=== PATIENT | female | born 1965 | race Caucasian/White ===

== ENCOUNTER → 2016-04-12 | Outpatient (CLI) | payer BC ==
--- NOTE | 2016-04-15 09:09 | MM ---
Reason for exam: screening (asymptomatic). Last mammogram was performed 1 year ago. History: Patient history of other cancer. Family history of breast cancer in 2 maternal cousins. Physical Findings: A clinical breast exam by your physician is recommended on an annual basis and results should be correlated with mammographic findings. MG 3D Screening Mammo W/Cad Bilateral CC and MLO view(s) were taken. Prior study comparison: April 05, 2015, bilateral MG screening mammo w CAD. November 08, 2014, left breast MG diagnostic mammo LT w CAD. The breast tissue is heterogeneously dense. This may lower the sensitivity of mammography. Nodular density in the right retroarolar region. This finding is changed when compared with previous exams. ASSESSMENT: Incomplete: need additional imaging evaluation, BI-RAD 0 RECOMMENDATION: Special view mammogram of the right breast. If lesion persists on supplemental views, image directed ultrasound is recommended. [facility] will attempt to contact patient to return for supplemental views and ultrasound if indicated.
== END | disposition home or self-care (01) ==
LOC: RADMAMWWP 09:38
PROVIDERS: ATTEND Obstetrics & Gynecology
DX: Z12.31 Encounter for screening mammogram for malignant neoplasm of breast (principal); R92.2 Inconclusive mammogram
CPT/HCPCS: 77052; 77063; G0202

== ENCOUNTER → 2016-04-19 | Outpatient (CLI) | payer BC ==
--- NOTE | 2016-04-19 14:18 | MM ---
Reason for exam: additional evaluation requested from abnormal screening. Last mammogram was performed less than 1 month ago. History: Patient history of other cancer. Family history of breast cancer in 2 maternal cousins. Physical Findings: Nurse did not find any significant physical abnormalities on exam. MG 3D Work Up W/Cad RT ML, spot compression CC, and spot compression MLO view(s) were taken of the right breast. Prior study comparison: April 12, 2016, bilateral MG 3d screening mammo w/cad. April 05, 2015, bilateral MG screening mammo w CAD. There is no discrete abnormality including area of concern. These results were verbally communicated with the patient and result sheet given to the patient on 04/19/16. ASSESSMENT: Benign, BI-RAD 2 RECOMMENDATION: Return to routine screening mammogram schedule for both breasts.
== END | disposition home or self-care (01) ==
LOC: RADMAMWWP 13:35
PROVIDERS: ATTEND Obstetrics & Gynecology
DX: R92.8 Other abnormal and inconclusive findings on diagnostic imaging of breast (principal)
CPT/HCPCS: G0206; G0279

== ENCOUNTER → 2017-05-16 | Outpatient (CLI) | payer BC ==
--- NOTE | 2017-05-20 09:02 | MM ---
Reason for exam: screening (asymptomatic). Last mammogram was performed 1 year and 1 month ago. History: Patient is postmenopausal and history of other cancer. Family history of breast cancer in 2 maternal cousins. Physical Findings: A clinical breast exam by your physician is recommended on an annual basis and results should be correlated with mammographic findings. MG 3D Screening Mammo W/Cad Bilateral CC and MLO view(s) were taken. Prior study comparison: April 19, 2016, right breast MG 3d work up w/cad RT. April 12, 2016, bilateral MG 3d screening mammo w/cad. The breast tissue is heterogeneously dense. This may lower the sensitivity of mammography. No significant changes when compared with prior studies. ASSESSMENT: Negative, BI-RAD 1 RECOMMENDATION: Routine screening mammogram of both breasts in 1 year.
== END | disposition home or self-care (01) ==
LOC: RADMAMWWP 09:59
PROVIDERS: ATTEND Obstetrics & Gynecology
DX: Z12.31 Encounter for screening mammogram for malignant neoplasm of breast (principal)
CPT/HCPCS: 77063; 77067

== ENCOUNTER → 2017-05-23 | Outpatient (CLI) | payer BC ==
--- NOTE | 2017-05-23 18:01 | BD ---
EXAMINATION TYPE: MG DEXA axial skeleton. DATE OF EXAM: 05/23/2017 COMPARISON: NONE CLINICAL HISTORY: 52 YR OLD FEMALE....ICD-10 CODE: N95.1 POST MENOPAUSAL SYMPTOMS Height: 63.5 Weight: 146 FRAX RISK QUESTIONS: Alcohol (3 or more units per day): NO Family History (Parent hip fracture): YES Glucocorticoids (More than 3mos): NO (Ex: prednisone, prednisolone, methylprednisolone, dexamethasone, and hydrocortisone). History of Fracture in Adulthood: NO Secondary Osteoporosis: NO 1. Type 1 Diabetes: NO 2. Hyperthyroidism: NO 3. Menopause before 45: NO 4. Malnutrition: NO 5. Chronic liver disease: NO Rheumatoid Arthritis: NO Current Tobacco Use: NO RISK FACTORS HISTORY OF: Family History of Osteoporosis: YES, HER MOTHER WITH BROKEN HIP Active: YES Diet low in dairy products/other sources of calcium: NO Postmenopausal woman: AT AGE 50 YRS OLD Hyperparathyroidism: NO Adrenal Insufficiency: NO MEDICATIONS: Additional Medications: ZOLOFT, Additional History: NONE TO NOTE EXAM MEASUREMENTS: Bone mineral densitometry was performed using the [employer] System. Bone mineral density as measured about the Lumbar spine is: ----- L1-L4(G/cm2): 1.034 T Score Values are as follows: ----- L1: -0.6 ----- L2: -1.3 ----- L3: -1.7 ----- L4: -1.4 ----- L1-L4: -1.2 Bone mineral density FIRST BONE DENSITY TEST.........BASELINE STUDY Bone mineral density about the R hip (g/cm2): 0.787 Bone mineral density about the L hip (g/cm2): 0.755 T Score values are as follows: -----R Neck: -1.8 -----L Neck: -1.9 -----R Total: -1.8 -----L Total: -2.0 Bone mineral density BASELINE STUDY FRAX%S: THERE IS A 12.5% CHANCE OF A MAJOR OSTEOPOROTIC FX AND A 0.8% OF HIP FX....PROBABILITY OF FX IN 10 YRS TIME IMPRESSION: Osteopenia (T Score between -2.5 and -1). There is slightly increased risk of fracture and the patient may be considered for treatment. Re-Screen 2-5 years. NOTE: T-SCORE=SD OF THE YOUNG ADULT MEAN.
== END | disposition home or self-care (01) ==
LOC: RADBDWWP 10:10
PROVIDERS: ATTEND Obstetrics & Gynecology
DX: M85.80 Other specified disorders of bone density and structure, unspecified site (principal)
CPT/HCPCS: 77080

== ENCOUNTER → 2018-05-22 | Outpatient (CLI) | payer BC ==
--- NOTE | 2018-05-26 08:45 | MM ---
Reason for exam: screening (asymptomatic). Last mammogram was performed 1 year ago. History: Patient is postmenopausal and history of other cancer. Family history of breast cancer in 2 maternal cousins. Physical Findings: A clinical breast exam by your physician is recommended on an annual basis and results should be correlated with mammographic findings. MG 3D Screening Mammo W/Cad Bilateral CC and MLO view(s) were taken. Prior study comparison: May 16, 2017, bilateral MG 3d screening mammo w/cad. April 19, 2016, right breast MG 3d work up w/cad RT. The breast tissue is heterogeneously dense. This may lower the sensitivity of mammography. No significant changes when compared with prior studies. ASSESSMENT: Benign, BI-RAD 2 RECOMMENDATION: Routine screening mammogram of both breasts in 1 year.
== END | disposition home or self-care (01) ==
LOC: RADMAMWWP 07:16
PROVIDERS: ATTEND Obstetrics & Gynecology
DX: Z12.31 Encounter for screening mammogram for malignant neoplasm of breast (principal)
CPT/HCPCS: 77063; 77067

== ENCOUNTER → 2019-05-25 | Outpatient (CLI) | payer BC ==
--- NOTE | 2019-05-25 16:24 | BD ---
EXAMINATION TYPE: Axial Bone Density DATE OF EXAM: 05/25/2019 COMPARISON: 05.23.2017 CLINICAL HISTORY: 54 YR OLD FEMALE....ICD-10 CODE: M89.9 DISORDER OF BONE Height: 63.8 Weight: 150 FRAX RISK QUESTIONS: Family History (Parent hip fracture): YES, WITH SPINAL FXS RISK FACTORS HISTORY OF: Family History of Osteoporosis: YES, HER MOTHER, WITH BACK FXS Postmenopausal woman: YES, AT AGE 51....NO HORMONES Hyperparathyroidism: NO Adrenal Insufficiency: NO MEDICATIONS: Additional Medications: ZOLOFT, Additional History: NOTHING ADDITIONAL TO NOTE EXAM MEASUREMENTS: Bone mineral densitometry was performed using the [employer] System. Bone mineral density as measured about the Lumbar spine is: ----- L1-L4(G/cm2): 1.081 T Score Values are as follows: ----- L1: -0.6 ----- L2: -1.1 ----- L3: -0.6 ----- L4: -1.1 ----- L1-L4: -0.8 Bone mineral density has: Increased 5.9% since study of: 05.23.2017 Bone mineral density about the R hip (g/cm2): 0.778 Bone mineral density about the L hip (g/cm2): 0.760 T Score values are as follows: -----R Neck: -2.0 -----L Neck: -0.9 -----R Total: -1.8 -----L Total: -2.0 Bone mineral density has: Decreased -0.3% since study of: 05.23.2017 FRAX%s: THERE IS A 14.6% CHANCE FOR A MAJOR OSTEOPOROTIC FX AND A 1.0% FOR HIP.....PROBABILITY FOR FX IN 10 YRS TIME IMPRESSION: Osteopenia (T Score between -2.5 and -1). There is slightly increased risk of fracture and the patient may be considered for treatment. Re-Screen 2-5 years. NOTE: T-SCORE=SD OF THE YOUNG ADULT MEAN.
--- NOTE | 2019-05-27 10:15 | MM ---
Reason for exam: screening (asymptomatic). Last mammogram was performed 1 year ago. History: Patient is postmenopausal and history of other cancer. Family history of breast cancer in 2 maternal cousins. Physical Findings: A clinical breast exam by your physician is recommended on an annual basis and results should be correlated with mammographic findings. MG 3D Screening Mammo W/Cad Bilateral CC and MLO view(s) were taken. Prior study comparison: May 22, 2018, bilateral MG 3d screening mammo w/cad. May 16, 2017, bilateral MG 3d screening mammo w/cad. April 12, 2016, bilateral MG 3d screening mammo w/cad. April 05, 2015, bilateral MG screening mammo w CAD. The breast tissue is heterogeneously dense. This may lower the sensitivity of mammography. Asymmetric density superior left MLO view was present previously but is now more defined. ASSESSMENT: Incomplete: need additional imaging evaluation, BI-RAD 0 RECOMMENDATION: Special view mammogram of the left breast. (3D) If lesion persists on supplemental views, image directed ultrasound is recommended. [facility] will attempt to contact patient to return for supplemental views and ultrasound if indicated.
== END | disposition home or self-care (01) ==
LOC: RADMAMWWP 08:50
PROVIDERS: ATTEND Obstetrics & Gynecology
DX: Z12.31 Encounter for screening mammogram for malignant neoplasm of breast (principal); M85.89 Other specified disorders of bone density and structure, multiple sites
CPT/HCPCS: 77063; 77067; 77080

== ENCOUNTER → 2019-05-31 | Outpatient (CLI) | payer BC ==
--- NOTE | 2019-06-01 08:29 | MM ---
Reason for exam: additional evaluation requested from abnormal screening. Last mammogram was performed less than 1 month ago. History: Patient is postmenopausal and history of other cancer. Family history of breast cancer in 2 maternal cousins. Physical Findings: Nurse did not find any significant physical abnormalities on exam. MG 3D Work Up W/Cad LT LM and spot compression MLO view(s) were taken of the left breast. Prior study comparison: May 25, 2019, bilateral MG 3d screening mammo w/cad. May 22, 2018, bilateral MG 3d screening mammo w/cad. The breast tissue is heterogeneously dense. This may lower the sensitivity of mammography. Left superior asymmetry improves on additional views with correlate lateral on screening CC. Precautionary left upper outer quadrant ultrasound will be done. These results were verbally communicated with the patient and result sheet given to the patient on 05/31/19. ASSESSMENT: Incomplete: need additional imaging evaluation, BI-RAD 0 RECOMMENDATION: Ultrasound of the left breast. (upper outer quadrant)
--- NOTE | 2019-06-01 08:31 | USB ---
Reason for exam: additional evaluation requested from abnormal screening. History: Patient is postmenopausal and history of other cancer. Family history of breast cancer in 2 maternal cousins. US Breast Workup Limited LT Left limited breast ultrasound including focal area of concern, retroareolar and axilla demonstrates no cystic or solid lesion seen. No suspicious sonographic finding. These results were verbally communicated with the patient and result sheet given to the patient on 05/31/19. ASSESSMENT: Negative, BI-RAD 1 RECOMMENDATION: Return to routine screening mammogram schedule for both breasts.
== END | disposition home or self-care (01) ==
LOC: RADMAMWWP 13:32
PROVIDERS: ATTEND Obstetrics & Gynecology
DX: R92.8 Other abnormal and inconclusive findings on diagnostic imaging of breast (principal)
CPT/HCPCS: 77061; 77065

== ENCOUNTER → 2020-06-09 | Outpatient (CLI) | payer BC ==
--- NOTE | 2020-06-12 14:49 | MM ---
Reason for exam: screening (asymptomatic). Last mammogram was performed 1 year ago. History: Patient is postmenopausal and history of other cancer. Family history of breast cancer in 2 maternal cousins. Took hormonal contraceptives for 15 years. Physical Findings: A clinical breast exam by your physician is recommended on an annual basis and results should be correlated with mammographic findings. MG 3D Screening Mammo W/Cad Bilateral CC and MLO view(s) were taken. Prior study comparison: May 31, 2019, left breast MG 3d work up w/cad LT. May 25, 2019, bilateral MG 3d screening mammo w/cad. There are scattered fibroglandular densities. There is chronic nodularity in the left posterior and lateral breast on 3D images. No significant changes when compared with prior studies. ASSESSMENT: Benign, BI-RAD 2 RECOMMENDATION: Routine screening mammogram of both breasts in 1 year.
== END ==
LOC: RADMAMWWP 16:37
PROVIDERS: ATTEND Obstetrics & Gynecology
DX: Z12.31 Encounter for screening mammogram for malignant neoplasm of breast (principal); Z80.3 Family history of malignant neoplasm of breast; Z78.0 Asymptomatic menopausal state
CPT/HCPCS: 77063; 77067

== ENCOUNTER → 2021-06-12 | Outpatient (CLI) | payer BC ==
--- NOTE | 2021-06-13 11:06 | MM ---
Reason for exam: screening (asymptomatic). Last mammogram was performed 1 year ago. History: Patient is postmenopausal and has history of other cancer at age 51. Family history of breast cancer in 2 maternal cousins. Took hormonal contraceptives for 15 years. Physical Findings: A clinical breast exam by your physician is recommended on an annual basis and results should be correlated with mammographic findings. MG 3D Screening Mammo W/Cad Bilateral CC and MLO view(s) were taken. Prior study comparison: June 09, 2020, bilateral MG 3d screening mammo w/cad. May 31, 2019, left breast MG 3d work up w/cad LT. The breast tissue is heterogeneously dense. This may lower the sensitivity of mammography. Stable benign calcifications. There is no discrete abnormality. No significant changes when compared with prior studies. ASSESSMENT: Benign, BI-RAD 2 RECOMMENDATION: Routine screening mammogram of both breasts in 1 year.
== END | disposition home or self-care (01) ==
LOC: RADMAMWWP 12:31
PROVIDERS: ATTEND Obstetrics & Gynecology
DX: Z12.31 Encounter for screening mammogram for malignant neoplasm of breast (principal); Z78.0 Asymptomatic menopausal state; Z80.3 Family history of malignant neoplasm of breast
CPT/HCPCS: 77063; 77067

== ENCOUNTER 2022-09-07 14:20 | Emergency (ER) | payer BC ==
[2022-09-07 14:26] VITALS: RESP 18; TEMP 98
[2022-09-07 14:51] LABS: Basophils % (A) 0 %; Eosinophils # (A) 0.1 k/uL (0-0.7); Eosinophils % (A) 1 %; HGB 14.4 gm/dL (11.4-16.0); Lymphocytes # (A) 1.3 k/uL (1.0-4.8); Lymphocytes % (A) 15 %; MCH 31.6 pg (25.0-35.0); MCHC 34.2 g/dL (31.0-37.0); MCV 92.3 fL (80.0-100.0); Mean Platelet Volume 7.9; Monocytes # (A) 0.3 k/uL (0-1.0); Monocytes % (A) 4 %; Neutrophils # (A) 6.6 k/uL (1.3-7.7); Neutrophils % (A) 79 %; Platelet Count 218 k/uL (150-450); RBC 4.55 m/uL (3.80-5.40); RDW 12.7 % (11.5-15.5); WBC 8.4 k/uL (3.8-10.6)
[2022-09-07 14:59] LABS: INR 0.9 (<1.2); Prothrombin Time 10.1 sec (9.0-12.0)
[2022-09-07 15:04] LABS: ALT 17 U/L (4-34); AST 23 U/L (14-36); African American GFR (CKD) >90 (>60 ml/min/1.73 sqM); Albumin 4.4 g/dL (3.5-5.0); Alkaline Phosphatase 84 U/L (38-126); Anion Gap 8 mmol/L; Blood Urea Nitrogen 13 mg/dL (7-17); Carbon Dioxide 27 mmol/L (22-30); Chloride 103 mmol/L (98-107); Glucose 93 mg/dL (74-99); Non-African American GFR(CKD) >90 (>60 ml/min/1.73 sqM); Sodium 138 mmol/L (137-145); Total Bilirubin 1.1 mg/dL (0.2-1.3); Total Protein 7.6 g/dL (6.3-8.2)
--- NOTE | 2022-09-07 15:20 | ED ---
General Adult HPI - General Chief complaint: Chest Pain Stated complaint: HEART BURN Time Seen by Provider: 09/07/22 15:19 Source: patient Mode of arrival: ambulatory Limitations: no limitations - History of Present Illness Initial comments: Patient presents to the ED with her complaining of having "heartburn" constantly since about midnight last night. Patient describes her pain as a pressure/spasm in her mid chest. Patient states that her pain has been slightly worse with PO intake today. Patient admits that she had mild nausea earlier t wai, but she denies vomiting. Patient denies radiation of her pain, trauma or injury, fever or chills, headache, focal numbness/weakness/neuro deficit, neck/arm/jaw/back pain, pleuritic pain, dyspnea, cough or cold symptoms, palpitations, dizziness, diaphoresis, vomiting, abdominal pain, diarrhea or constipation, bloody or melanotic stool, dysuria or urinary symptoms, leg or calf swelling or pain, or any other symptoms or complaints. Patient states that she has taken Pepto-Bismol and Prilosec today without any relief. - Related Data Allergies Allergy/AdvReac Type Severity Reaction Status Date / Time No Known Allergies Allergy Verified 09/07/22 14:26 Review of Systems ROS Statement: Those systems with pertinent positive or pertinent negative responses have been documented in the HPI. ROS Other: All systems not noted in ROS Statement are negative. Past Medical History Past Medical History: No Reported History History of Any Multi-Drug Resistant Organisms: None Reported Past Surgical History: Hernia Repair Past Psychological History: No Psychological Hx Reported Smoking Status: Never smoker Past Alcohol Use History: Occasional Past Drug Use History: None Reported General Exam Limitations: no limitations General appearance: alert, in no apparent distress Head exam: Present: normocephalic Eye exam: Present: normal appearance ENT exam: Present: mucous membranes moist Neck exam: Present: other (Trachea is in midline) Respiratory exam: Present: normal lung sounds bilaterally. Absent: respiratory distress, wheezes, rales, rhonchi, stridor, chest wall tenderness Cardiovascular Exam: Present: regular rate, normal rhythm, normal heart sounds, other (Normal radial pulses bilaterally) GI/Abdominal exam: Present: soft. Absent: distended, tenderness, guarding Extremities exam: Present: other (Negative Homans sign bilaterally). Absent: tenderness, pedal edema, calf tenderness Neurological exam: Present: alert, oriented X3 Psychiatric exam: Present: normal affect, normal mood Skin exam: Present: warm, dry, intact, normal color Course Vital Signs 09/07/22 14:24 Temperature 98 F Pulse Rate 81 Respiratory 18 Rate Blood Pressure 167/106 O2 Sat by Pulse 99 Oximetry - Reevaluation(s) Reevaluation #1: 09/07/22 17:03 Patient reports that her chest discomfort has improved with the GI cocktail that she was given in the ED, and she denies development of any new symptoms while in the ED. Patient remains alert and breathing comfortably with a normal room air oxygen saturation. Patient and are aware of the patient's test results, and patient feels comfortable being discharged home at this time. She was counseled about chest pain/GERD, and she was clearly explained return and follow-up instructions. She feels comfortable with this plan. EKG Findings - EKG Comments: EKG Findings:: ED physician interpretation (interpreted by me): Normal sinus rh ythm, ventricular rate of 81 bpm, no ectopy, normal [place] and QRS intervals, normal QT interval, normal axis, no ST or T-wave abnormality Medical Decision Making - Medical Decision Making Was pt. sent in by a medical professional or institution (, PA, INTERNAL MEDICINE DOCTOR, urgent care, hospital, or correction...) When possible be specific @ -No Did you speak to anyone other than the patient for history (EMS, parent, family, police, friend...)? What history was obtained from this source @ -No Did you review nursing and triage notes (agree or disagree)? Why? @ -I reviewed and agree with nursing and triage notes Were old charts reviewed (outside hosp., previous admission, EMS record, old EKG, old radiological studies, urgent care reports/EKG's, correction records)? Report findings @ -No old charts were reviewed Differential Diagnosis (chest pain, altered mental status, abdominal pain women, abdominal pain men, vaginal bleeding, weakness, fever, dyspnea, syncope, headache, dizziness, GI bleed, back pain, seizure, CVA, palpatations, mental health, musculoskeletal)? @ -Differential Chest Pain: Stable Angina, Unstable Angina, STEMI, NSTEMI, Pneumothorax, Musculoskeletal, Esophageal Spasm, GERD, anxiety, esophagitis, this is not meant to be an all-inclusive list. EKG interpreted by me (3pts min.). @ -As above X-rays interpreted by me (1pt min.). @ -Chest x-ray was reviewed myself and shows no acute abnormality. I agree with the radiologist's interpretation as above. CT interpreted by me (1pt min.). @ -None done U/S interpreted by me (1pt. min.). @ -None done What testing was considered but not performed or refused? (CT, X-rays, U/S, labs)? Why? @ -None What meds were considered but not given or refused? Why? @ -None Did you discuss the management of the patient with other professionals (professionals i.e. Dr., PA, INTERNAL MEDICINE DOCTOR, lab, RT, psych nurse, professor of social work, assembler ping pong table, teacher, founder chairman and chief creative officer, community case manager)? Give summary @ -No Was smoking cessation discussed for >3mins.? @ -No Was critical care preformed (if so, how long)? @ -No Were there social determinants of health that impacted care today? How? (Homelessness, low income, unemployed, alcoholism, drug addiction, transportation, low edu. Level, literacy, decrease access to med. care, skilled nursing, rehab)? @ -No Was there de-escalation of care discussed even if they declined (Discuss DNR or withdrawal of care, Hospice)? DNR status @ -No What co-morbidities impacted this encounter? (DM, HTN, Smoking, COPD, CAD, Cancer, CVA, ARF, Chemo, Hep., AIDS, mental health diagnosis, sleep apnea, morbid obesity)? @ -None Was patient admitted / discharged? Hospital course, mention meds given and route, prescriptions, significant lab abnormalities, going to OR and other pertinent info. @ -Patient's ED workup, including EKG chest x-ray and labs are unremarkable. Patient reports having constant symptoms since midnight last night, and her troponin is within normal limits. Patient reports that her chest discomfort has improved with the GI cocktail that she was given in the ED, and she also reports that her chest discomfort was worse with oral intake today. I suspect that her chest pain may be esophageal in etiology. Patient has no identifiable CAD risk factors. I do not suspect an emergent medical condition at this time. Will discharge patient home with her at this time. Patient feels comfortable with this plan. Undiagnosed new problem with uncertain prognosis? @ -No Drug Therapy requiring intensive monitoring for toxicity (Heparin, Nitro, Insulin, Cardizem)? @ -No Were any procedures done? @ -No Diagnosis/symptom? @ -Chest pain Acute, or Chronic, or Acute on Chronic? @ -Acute Uncomplicated (without systemic symptoms) or Complicated (systemic symptoms)? @ -default Side effects of treatment? @ -No Exacerbation, Progression, or Severe Exacerbation? @ -No Poses a threat to life or bodily function? How? (Chest pain, [place], [place], pneumonia, PE, COPD, DKA, ARF, appy, cholecystitis, CVA, Diverticulitis, Homicidal, Suicidal, threat to staff... and all critical care pts) @ -No - Lab Data Result diagrams: 09/07/22 14:37 09/07/22 14:37 Lab Results 09/07/22 09/07/22 09/07/22 Range/Units 14:37 14:37 14:37 WBC 8.4 (3.8-10.6) k/uL RBC 4.55 (3.80-5.40) m/uL Hgb 14.4 (11.4-16.0) gm/dL Hct 42.0 (34.0-46.0) % MCV 92.3 (80.0-100.0) fL MCH 31.6 (25.0-35.0) pg MCHC 34.2 (31.0-37.0) g/dL RDW 12.7 (11.5-15.5) % Plt Count 218 (150-450) k/uL MPV 7.9 Neutrophils % 79 % Lymphocytes % 15 % Monocytes % 4 % Eosinophils % 1 % Basophils % 0 % Neutrophils # 6.6 (1.3-7.7) k/uL Lymphocytes # 1.3 (1.0-4.8) k/uL Monocytes # 0.3 (0-1.0) k/uL Eosinophils # 0.1 (0-0.7) k/uL Basophils # 0.0 (0-0.2) k/uL PT 10.1 (9.0-12.0) sec INR 0.9 (<1.2) APTT 23.0 (22.0-30.0) sec Sodium 138 (137-145) mmol/L Potassium 4.0 (3.5-5.1) mmol/L Chloride 103 (98-107) mmol/L Carbon Dioxide 27 (22-30) mmol/L Anion Gap 8 mmol/L BUN 13 (7-17) mg/dL Creatinine 0.67 (0.52-1.04) mg/dL Est GFR (CKD-EPI)AfAm >90 (>60 ml/min/1.73 sqM) Est GFR (CKD-EPI)NonAf >90 (>60 ml/min/1.73 sqM) Glucose 93 (74-99) mg/dL Calcium 10.0 (8.4-10.2) mg/dL Magnesium 2.0 (1.6-2.3) mg/dL Total Bilirubin 1.1 (0.2-1.3) mg/dL AST 23 (14-36) U/L ALT 17 (4-34) U/L Alkaline Phosphatase 84 (38-126) U/L Troponin I (0.000-0.034) ng/mL Total Protein 7.6 (6.3-8.2) g/dL Albumin 4.4 (3.5-5.0) g/dL 09/07/22 Range/Units 14:37 WBC (3.8-10.6) k/uL RBC (3.80-5.40) m/uL Hgb (11.4-16.0) gm/dL Hct (34.0-46.0) % MCV (80.0-100.0) fL MCH (25.0-35.0) pg MCHC (31.0-37.0) g/dL RDW (11.5-15.5) % Plt Count (150-450) k/uL MPV Neutrophils % % Lymphocytes % % Monocytes % % Eosinophils % % Basophils % % Neutrophils # (1.3-7.7) k/uL Lymphocytes # (1.0-4.8) k/uL Monocytes # (0-1.0) k/uL Eosinophils # (0-0.7) k/uL Basophils # (0-0.2) k/uL PT (9.0-12.0) sec INR (<1.2) APTT (22.0-30.0) sec Sodium (137-145) mmol/L Potassium (3.5-5.1) mmol/L Chloride (98-107) mmol/L Carbon Dioxide (22-30) mmol/L Anion Gap mmol/L BUN (7-17) mg/dL Creatinine (0.52-1.04) mg/dL Est GFR (CKD-EPI)AfAm (>60 ml/min/1.73 sqM) Est GFR (CKD-EPI)NonAf (>60 ml/min/1.73 sqM) Glucose (74-99) mg/dL Calcium (8.4-10.2) mg/dL Magnesium (1.6-2.3) mg/dL Total Bilirubin (0.2-1.3) mg/dL AST (14-36) U/L ALT (4-34) U/L Alkaline Phosphatase (38-126) U/L Troponin I <0.012 (0.000-0.034) ng/mL Total Protein (6.3-8.2) g/dL Albumin (3.5-5.0) g/dL - Radiology Data Chest x-ray: No evidence for acute pulmonary disease. Disposition Clinical Impression: Chest pain Disposition: HOME SELF-CARE Condition: Stable Instructions (If sedation given, give patient instructions): Chest Pain (ED), GERD (Gastroesophageal Reflux Disease) (ED) Additional Instructions: Return to the ER immediately should you develop new or worsening pain, shortness of breath, a fever, vomiting, feeling dizzy or faint, or new or worsening symptoms. Follow up closely with your primary care provider. Is patient prescribed a controlled substance at d/c from ED?: No Referrals: Carol Shin MD [Primary Care Provider] - 1-2 days Time of Disposition: 17:08
[2022-09-07] MEDS ORDERED: MAG HYDROX/AL HYDROX/SIMETH 30 ML, HYOSCYAMINE ELIXIR 10 ML, LIDOCAINE 2% GLYDO JELLY 1... PO STA ×3 (15:27)
--- NOTE | 2022-09-07 15:31 | XR ---
EXAMINATION TYPE: XR chest 2V DATE OF EXAM: 09/07/2022 COMPARISON: NONE HISTORY: Shortness of breath TECHNIQUE: Frontal and lateral views of the chest are obtained. FINDINGS: Scattered senescent parenchymal changes noted. Hyperinflation compatible with COPD. No evidence for infiltrate. No evidence for atelectasis. Heart size is stable. Mediastinal structures are stable and grossly unremarkable. No evidence for hilar prominence. Degenerative changes dorsal spine. IMPRESSION: 1. No evidence for acute pulmonary disease.
[2022-09-07 17:16] VITALS: BP 149/89; PULSE 69
== END 2022-09-07 17:18 | disposition home or self-care (01) ==
LOC: EC 14:20
DX: R07.89 Other chest pain (principal)
CPT/HCPCS: 36415; 71046; 80053; 83735; 84484; 85025; 85610; 85730; 93005; 99285

== ENCOUNTER → 2023-06-17 | Outpatient (CLI) | payer BC ==
--- NOTE | 2023-06-18 18:31 | MM ---
Reason for Exam: Screening (asymptomatic). Last screening mammogram was performed 12 month(s) ago. Patient History: Menarche at age 12. First Full-Term at age 27. Postmenopausal. Other cancer, age 51. Patient used Hormonal Contraceptives for 15 years. Maternal cousin had breast cancer. Maternal cousin had breast cancer. Risk Values: La 5 year model risk: 1.5%. NCI Lifetime model risk: 8.5%. Prior Study Comparison: 06/09/2020 Bilateral Screening Mammogram, [facility]. 06/12/2021 Bilateral Screening Mammogram, [facility]. 06/13/2022 Bilateral MG 3D screening mammo w/cad, [facility]. Tissue Density: The breasts are heterogeneously dense, which may obscure small masses. Findings: Analyzed By CAD. Superior asymmetric density left breast is unchanged. There is no suspicious group of microcalcifications or new suspicious mass in either breast. Overall Assessment: Benign, BI-RAD 2 Management: Screening Mammogram of both breasts in 1 year. . Patient should continue monthly self-breast exams. A clinical breast exam by your physician is recommended on an annual basis. This exam should not preclude additional follow-up of suspicious palpable abnormalities. Note on La scores and lifetime risk: 1. A La score greater than 3% is considered moderate risk. If this is the case, consider specialist referral to assess eligibility for a risk reducing agent. 2. If overall lifetime risk for the development of breast cancer is 20% or higher, the patient may qualify for future screening with alternating mammogram and breast MRI. Electronically signed and approved by: Lissa Haney M.D. Radiologist
== END | disposition home or self-care (01) ==
LOC: RADMAMWWP 11:20
PROVIDERS: ATTEND Obstetrics & Gynecology
DX: Z12.31 Encounter for screening mammogram for malignant neoplasm of breast (principal); Z80.3 Family history of malignant neoplasm of breast; Z78.0 Asymptomatic menopausal state
CPT/HCPCS: 77063; 77067

== ENCOUNTER → 2023-06-27 | Outpatient (CLI) | payer BC ==
--- NOTE | 2023-06-27 13:14 | CA ---
Exercise Stress Test Report Name: Lizzie Fabian Exam Date: 06/27/2023 10:58 Exam Location: [place] Stress Ht (in): 65 Wt (lb): 147 BSA: 1.74 Ordering Phys: Carol Shin MD Referring Phys: Carol Shin MD Technologist: Francisco Olivo Age: 58 Gender: F : 1965 Procedure CPT: Indications: I25.10 ATHSCL HEART DISEASE OF [place] CORONARY ART ICD-10 Codes: Patient History: CP, HTN, CHOL Medications: EZETIMIBE, LOSARTAN, SERTRALINE Meds past 24 hrs: Pretest Chest Pain: STRESS TEST Rolando Protocol Exercise Duration (min:sec): 10:[address] Depressions (mm): Angina Score: Ardon Score: Resting HR (bpm): 67 Peak HR (bpm): 174 Resting BP (mmHg): 144 / 85 Peak BP (mmHg): 206 / 84 MPHR: 162 Target HR: 138 % MPHR: 107 METS: 12.1 Total Dose: Peak Dose: Atropine: Double Product: 37841 BP Response: Stress Termination: Reached target heart rate Stress Symptoms: No chest pain or symptoms Stress Summary: ECG ANALYSIS Resting ECG: Normal sinus rhythm Stress ECG: Upsloping ST depressions, negative is logical response and on most of ischemia CONCLUSIONS Good excess tolerance for age achieving 12.[address] changes which are not diagnostic for ischemia Mildly hypertensive response to exercise Probably normal treadmill stress test Dr Yao Nogueira (Electronically Signed) Final Date: 27 June 2023 13:13
--- NOTE | 2023-06-30 10:44 | NM ---
EXAMINATION TYPE: NM stress cardiolite complete DATE OF EXAM: 06/27/2023 COMPARISON: NONE CLINICAL INDICATION: Female, 58 years old with history of I25.10 ATHSCL HEART DISEASE OF [place] CORON KD ART; TECHNIQUE: After the intravenous administration of 9.8 mCi Tc 99m Sestamibi - Rest images obtained 5 0 minutes post injection. The patient exercised using a ZAIN protocol and 1 minute prior to peak e xercise was injected with 24.1 mCi Tc 99m Sestamibi - Stress images obtained 31 minutes post injectio n. FINDINGS: Targeted heart rate was achieved during performance of the study. Review of stress and rest SPECT candelaria ges demonstrates no distinct perfusion abnormality. Gated analysis shows normal wall motion with an estimated left ventricular ejection fraction of 60 %. IMPRESSION: No scintigraphic evidence for reversible ischemia
== END | disposition home or self-care (01) ==
LOC: RADNMMAIN 08:36
PROVIDERS: ATTEND Internal Medicine
DX: I25.10 Atherosclerotic heart disease of native coronary artery without angina pectoris (principal)
CPT/HCPCS: 93017; 78452; A9500

== ENCOUNTER 2024-04-29 11:15 | Day surgery (SDC) | payer BC ==
--- NOTE | 2024-04-28 23:23 | HP ---
HISTORY AND PHYSICAL DATE OF SURGERY: 04/29/2024. HISTORY OF PRESENT ILLNESS: Lizzie Fabian is a 59-year-old patient, seen with progressive left shoulder pain. We discussed options regarding treatment. She elected to proceed with left shoulder arthroscopy. Consent was obtained. PAST MEDICAL HISTORY: Hyperlipidemia and hypertension. SURGICAL HISTORY: Herniorrhaphy. DAILY MEDICATIONS: 1. Losartan. 2. Sertraline. ALLERGIES: None. SOCIAL HISTORY: She denies tobacco use. PHYSICAL EVALUATION OF THE LEFT SHOULDER: Flexion is 120 degrees. Abduction is 110 degrees. External rotation is 40 degrees with pain and weakness. Tenderness anterior lateral acromion, bicipital groove, rotator cuff tendon, long head biceps tendon. Impingement is positive 100 degrees. Cross-body adduction sign is positive. Distal neurovascular exam is intact. IMAGING STUDIES: Left shoulder radiographs revealed a type 2 acromion, acromioclavicular joint osteoarthritis. MRI of left shoulder, subscapularis tendon tear, medially subluxed, long-head biceps tendon, and impingement. IMPRESSION: 1. Left shoulder impingement with rotator cuff tendon tear. 2. Left shoulder subluxed, dislocated biceps tendon. 3. Left shoulder acromioclavicular joint osteoarthritis. PLAN: Left shoulder arthroscopy with subacromial decompression, arthroscopic rotator cuff repair, biceps tenodesis, and debridement. MMODL / IJN: [id number] /
[~2024-04-29 11:15] MED LIST: HYDROmorphone 0.5 MG/0.5 ML SYRINGE IVP PRN; LIDOCAINE 1% (10MG/ML) FOR IV START INTRADERMA PRN
[2024-04-29] MEDS: LACTATED RINGERS 1,000 ML IV SCH (12:00)
[2024-04-29] MEDS: SCOPOLAMINE 1 MG/72 HR PATCH TRANSDERM ONE (12:00)
[2024-04-29] MEDS: IV FLUID CONTINUATION 1,000 ML IV ONE (12:00)
[2024-04-29] MEDS: MIDAZOLAM 2 MG/2 ML VIAL IV PRN (12:15)
[2024-04-29] MEDS: fentaNYL (PF) 50 MCG/ML 2 ML AMP IVP PRN (12:15)
[2024-04-29] MEDS: ONDANSETRON 4 MG/2 ML VIAL IVP ONE (12:15)
[2024-04-29] MEDS: DEXAMETHASONE SOD PHOSPHATE 4 MG/ML 1 ML VIAL IV ONE (12:15)
--- NOTE | 2024-04-29 12:29 | P.ANPRN ---
Procedure Note - Anesthesia - Nerve Block Performed Left Interscalene Single Time Out Performed: Yes Date of Procedure: 04/29/24 Procedure Start Time: 12:15 Procedure Stop Time: 12:20 Location of Patient: PreOp Indication: Acute Post-Operative Pain, Analgesia, Requested by Surgeon Sedation Type: Sedate with meaningful contact maintained Preparation: Sterile Prep Position: Sitting Needle Types: Pajunk Needle Gauge: 21 Ultrasound used to visualize needle placement: Yes Ultrasound used to observe medication spread: Yes Injectate: 0.5% Ropivacaine (see comment for volume) ([id number]+Decadron 4mg) Narrative: Negative stimulation @0.5MA. Blood Aspirated: No Pain Paresthesia on Injection Noted: No Resistance on Injection: Normal Image Stored and Saved: Yes Events: Uneventful and Well Tolerated
[2024-04-29] MEDS ORDERED: PROPOFOL 10 MG/ML 20 ML VIAL IV ONE (13:01)
[2024-04-29] MEDS ORDERED: SUCCINYLCHOLINE CHLORIDE 200 MG/10 ML VIAL IV ONE (13:01)
[2024-04-29] MEDS ORDERED: LIDOCAINE 1% INJ 10MG/ML (20 ML MDV) ONE (13:01)
[2024-04-29] MEDS ORDERED: DEXAMETHASONE SOD PHOSPHATE 4 MG/ML 1 ML VIAL ONE (13:01)
[2024-04-29] MEDS ORDERED: ROPIVACAINE 5 MG/ML 30 ML VIAL ONE (13:01)
[2024-04-29] MEDS ORDERED: fentaNYL (PF) 50 MCG/ML 2 ML AMP ONE (13:01)
[2024-04-29] MEDS ORDERED: PHENYLEPHRINE-0.9% NACL SYG 1,000 MCG/10 ML SYRINGE ONE (13:01)
--- NOTE | 2024-04-29 14:37 | P.OP ---
Date of Procedure: 04/29/24 Preoperative Diagnosis: Left shoulder impingement Postoperative Diagnosis: 1. Left shoulder rotator cuff tear 2. Left shoulder impingement 3. Left shoulder acromioclavicular joint osteoarthritis Procedure(s) Performed: 1. Left shoulder arthroscopic rotator cuff repair 2. Left shoulder arthroscopic subacromial decompression 3. Left shoulder arthroscopic Roby procedure Implants: 1Arthrex 5.5 swivel lock anchor Anesthesia: GETA, regional (Interscalene block) Surgeon: Akshat Ventura [employer]er #1: Zach To Estimated Blood Loss (ml): 8 Pathology: none sent Condition: stable Disposition: PACU Indications for Procedure: 59-year-old patient seen with progressive left shoulder pain. After having treatment options discussed, she elected to proceed with arthroscopy. Operative Findings: See description of procedure Description of Procedure: Patient underwent an interscalene block by department of anesthesia. The patient was then taken to the operative suite. The patient underwent a general anesthetic by the department of anesthesia. The patient was placed into a lateral position and secured. There was appropriate padding of the bony prominence. Left shoulder was then prepped and draped in normal sterile orthopedic fashion. We placed the extremity in 10 pounds of longitudinal traction. A posterior incision was now made for a posterior working portal site. The trocar and cannula were inserted into the glenohumeral joint. Arthroscopy was initiated. Spinal needle was now inserted anteriorly, to ascertain the anterior working portal site. An incision was now made in that area, a trocar was inserted followed by a probe. The long head biceps tendon was absent. There was no significant chondromalacia within the glenohumeral joint. The labrum was probed and was found to be stable. At this point instruments were removed from the glenohumeral joint. Utilizing the posterior working portal site, the trocar and cannula were inserted into the subacromial space. Arthroscopy initiated. I made an incision 2 fingerbreadths lateral to the acromion. I introduced my trocar followed by my ArthroCare ablator. I now began ablating thick subacromial bursal tissue, which exposed the undersurface of the anterior acromion. There was diminished subacromial space. There was a prominent anterior acromion. A motorized bur was introduced and a subacromial decompression was performed. I also excised some osteophytes off the inferior aspect of the distal clavicle. The AC joint was visualized and noted to be fairly arthritic. The motorized bur was introduced in the anterior portal site and a Roby procedure was performed without difficulty moving about 8 mm of bone off the distal clavicle, decompressing the AC joint nicely. I turned my attention to the rotator cuff. There was a 1 cm tear along the distal supraspinatus. There was some partial tearing along the subscapularis tendon but upon probing the area there was no evidence for per foration. I debrided that partial subscapularis tendon tear and again probed the area and did not find any full-thickness perforation present. I debrided the margins of the distal supraspinatus tendon tear getting down to stable tendon tissue. The tear was about 1.5 cm and was freely mobile over the footprint. I abraded the footprint with a motorized bur. With the assistance of Aquiles SHAH I passed 3 everted mattress sutures through good bites of rotator cuff tendon. I punched a hole in the footprint area for insertion of an anchor. All 6 limbs of suture were passed through the eyelet of an Arthrex 5.5 swivel lock anchor. I placed the eyelet into our prepunched a hole. I held that in position while Aquiles SHAH tension all 6 limbs of suture and deployed the anchor with good fixation noted. All residual suture limbs were now clipped. We had good compression of the tendon along the entire footprint. Instruments now removed from the portal sites. All portal sites were anita roximated with nylon suture. Sterile dressings were applied followed by a shoulder sling. Zach SHAH assisted in all aspects of this case. The patient was awakened, transferred to a bed, and taken to recovery in stable condition.
[2024-04-29 14:41] VITALS: TEMP 97
[2024-04-29 15:15] VITALS: RESP 16
[2024-04-29 16:49] VITALS: BP 148/72; PULSE 82
== END 2024-04-29 16:40 | disposition home or self-care (01) ==
LOC: OR 11:15
PROVIDERS: ATTEND Orthopaedic Surgery
DX: M75.112 Incomplete rotator cuff tear or rupture of left shoulder, not specified as traumatic (principal); M75.42 Impingement syndrome of left shoulder; M19.012 Primary osteoarthritis, left shoulder; G89.18 Other acute postprocedural pain; I10 Essential (primary) hypertension; E78.5 Hyperlipidemia, unspecified; K21.9 Gastro-esophageal reflux disease without esophagitis; F32.A Depression, unspecified; Z79.899 Other long term (current) drug therapy
CPT/HCPCS: 29827; 29826; 29824; 64415; C1713 ×2; J2250; J0330; J1100; J0690; J2405; J2003; J3010; J2795; J2704; J2371

== ENCOUNTER → 2024-06-28 | Outpatient (CLI) | payer BC ==
--- NOTE | 2024-06-28 11:50 | MM ---
Reason for Exam: Screening (asymptomatic). Last screening mammogram was performed 12 month(s) ago. Patient History: Menarche at age 12. First Full-Term at age 27. Postmenopausal. Patient has history of breast feeding. Other cancer, age 51. Patient used Hormonal Contraceptives for 15 years. Maternal cousin had breast cancer. Maternal cousin had breast cancer. Risk Values: La 5 year model risk: 1.5%. NCI Lifetime model risk: 8.3%. Prior Study Comparison: 05/22/2018 Bilateral Screening Mammogram, [facility]. 05/25/2019 Bilateral Screening Mammogram, [facility]. 05/31/2019 Left Diagnostic Mammogram, [facility]. 06/09/2020 Bilateral Screening Mammogram, [facility]. 06/12/2021 Bilateral Screening Mammogram, [facility]. 06/13/2022 Bilateral MG 3D screening mammo w/cad, [facility]. 06/17/2023 Bilateral MG 3D screening mammo w/cad, [facility]. Tissue Density: The breasts are heterogeneously dense, which may obscure small masses. Findings: Analyzed By CAD. There is no suspicious group of microcalcifications or new suspicious mass in either breast. Overall Assessment: Benign, BI-RAD 2 Management: Screening Mammogram of both breasts in 1 year. . Patient should continue monthly self-breast exams. A clinical breast exam by your physician is recommended on an annual basis. This exam should not preclude additional follow-up of suspicious palpable abnormalities. Note on La scores and lifetime risk: 1. A La score greater than 3% is considered moderate risk. If this is the case, consider specialist referral to assess eligibility for a risk reducing agent. 2. If overall lifetime risk for the development of breast cancer is 20% or higher, the patient may qualify for future screening with alternating mammogram and breast MRI. [facility], , 06/28/2024 11:47 AM. Electronically signed and approved by: Willam Akbar M.D. Radiologis
== END | disposition home or self-care (01) ==
LOC: RADMAMWWP 11:14
PROVIDERS: ATTEND Internal Medicine
DX: Z12.31 Encounter for screening mammogram for malignant neoplasm of breast (principal); R92.333 Mammographic heterogeneous density, bilateral breasts; Z78.0 Asymptomatic menopausal state; Z92.0 Personal history of contraception; Z80.3 Family history of malignant neoplasm of breast
CPT/HCPCS: 77063; 77067

== ENCOUNTER → 2024-09-23 | Outpatient (CLI) | payer BC ==
--- NOTE | 2024-09-24 07:30 | BD ---
EXAMINATION TYPE: Axial Bone Density DATE OF EXAM: 09/23/2024 CLINICAL HISTORY: 59 years old Female. ICD-10 CODE: M85.851 osteopenia rt hip , Additional History: Height: 63.5 Weight: 152 FRAX RISK QUESTIONS: Family History (Parent hip fracture): no History of Fracture in Adulthood: no Secondary Osteoporosis: no RISK FACTORS HISTORY OF: Surgery to Spine/Hip(right/left)/Wrist (right/left): no MEDICATIONS: Thyroid Medications: no Osteoporosis Medications: no EXAM MEASUREMENTS: Bone mineral densitometry was performed using the Veebow System. Bone mineral density as measured about the Lumbar spine is: ----- L1-L4(G/cm2): 1.019 T Score Values are as follows: ----- L1: -1.7 ----- L2: -1.8 ----- L3: -0.9 ----- L4: -1.2 ----- L1-L4: -1.3 Z Score Values are as follows: ----- L1: -0.6 ----- L2: -0.8 ----- L3: 0.2 ----- L4: -0.1 ----- L1-L4: -0.3 Bone mineral density has: Increased 0.9% since study of: 06/13/2022 Bone mineral density about the R hip (g/cm2): 0.790 Bone mineral density about the L hip (g/cm2): 0.764 T Score values are as follows: -----R Neck: -2.0 -----L Neck: -1.9 -----R Total: -1.7 -----L Total: -1.9 Z Score values are as follows: -----R Neck: -0.9 -----L Neck: -0.7 -----R Total: -0.9 -----L Total: -1.1 Bone mineral density has: Decreased -1.9% since study of: 06/13/2022 FRAX%s: The graph provided illustrates a 9.7% chance for a major osteoporotic fx and a 1.3% chance fo r the hips probability for fx in 10 years time. IMPRESSION: Osteopenia (T Score between -2.5 and -1). There is slightly increased risk of fracture and the patient may be considered for treatment. Re-Screen 2-5 years. NOTE: T-SCORE=SD OF THE YOUNG ADULT MEAN. [facility], , 09/24/2024 7:28 AM
== END | disposition home or self-care (01) ==
LOC: RADBDWWP 15:40
PROVIDERS: ATTEND Internal Medicine
DX: M85.851 Other specified disorders of bone density and structure, right thigh (principal); M85.89 Other specified disorders of bone density and structure, multiple sites
CPT/HCPCS: 77080

== ENCOUNTER → 2024-09-23 | Outpatient (CLI) | payer BC ==
--- NOTE | 2024-09-23 16:18 | US ---
EXAMINATION TYPE: US carotid duplex BILAT DATE OF EXAM: 09/23/2024 COMPARISON: NONE CLINICAL INDICATION: Female, 59 years old with history of I65.23 OCCLUSION AND STENOSIS OF BILATERAL CAROTID; HTN- on meds. High cholesterol- on meds. Additional History: .... TECHNIQUE: Grayscale, color Doppler and spectral Doppler evaluation of the bilateral carotid systems and vertebral arteries. Indirect Doppler criteria was utilized. FINDINGS: EXAM MEASUREMENTS: RIGHT: Peak Systolic Velocity (PSV) cm/sec ----- Right CCA: 79.0 ----- Right ICA: 76.6 ----- Right ECA: 90.8 ICA/CCA ratio: 1.0 RIGHT: End Diastole cm/sec ----- Right CCA: 28.4 ----- Right ICA: 19.7 ----- Right ECA: 23.7 LEFT: Peak Systolic Velocity (PSV) cm/sec ----- Left CCA: 76.5 ----- Left ICA: 80.8 ----- Left ECA: 81.7 ICA/CCA ratio: 1.1 LEFT: End Diastole cm/sec ----- Left CCA: 24.8 ----- Left ICA: 28.4 ----- Left ECA: 19.7 VERTEBRALS (direction of flow): Right Vertebral: Antegrade Left Vertebral: Antegrade Rhythm: Normal GAS TORCH BRAZIER NOTES: No plaque, wall thickening or elevated velocities. Color Doppler imaging shows patency with blood flow throughout the carotid artery. Spectral waveforms are within normal limits. IMPRESSION: Right: Less than 50% stenosis of the carotid bifurcation. Left: Less than 50% stenosis of the carotid bifurcation. Criteria for Assigning % of Stenosis / Diameter reduction (Estimation based on the indirect measurements of the internal carotid artery velocities (ICA PSV). 1. Normal (no stenosis)=ICA PSV < 180 cm/s: ratio < 2.0: ICA EDV<40 cm/s. 2. Less than 50% stenosis=ICA PSV < 180 cm/s: ratio < 2.0: ICA EDV<40 cm/s. 3. 50 to 69% stenosis=ICA PSV of 180 to 230 cm/s: ration 2.0 ? 4.0: ICA EDV 40-100 cm/s. PSV 125-180 cm/sec and ICA/CCA PSV Ratio ? 2.0 is also consistent with 50-69% stenosis 4. Greater than 70% stenosis to near occlusion= ICA PSV > 230 cm/s: ratio > 4.0: ICA EDV > 100 cm/s. 5. Near occlusion= ICA PSV velocities may be low or undetectable: variable ratio and ICA EDV. 6. Total occlusion=unable to detect flow. [facility], , 09/23/2024 4:15 PM
== END | disposition home or self-care (01) ==
LOC: RADUSWWP 15:37
PROVIDERS: ATTEND Internal Medicine
DX: I65.23 Occlusion and stenosis of bilateral carotid arteries (principal); E78.00 Pure hypercholesterolemia, unspecified; I10 Essential (primary) hypertension
CPT/HCPCS: 93880